=== PATIENT | female | born 1975 | race African-American/Black ===

== ENCOUNTER 2016-12-18 18:10 | Emergency (ER) | payer OTHER ==
[~2016-12-18] VITALS: Ht 162.6 cm; Wt 96.0 kg
[2016-12-18 18:18] VITALS: BP 107/75
== END 2016-12-18 20:30 | disposition left against medical advice (07) ==
LOC: ER 18:18
DX: O46.91 Antepartum hemorrhage, unspecified, first trimester (principal); Z3A.01 Less than 8 weeks gestation of pregnancy; Z53.21 Procedure and treatment not carried out due to patient leaving prior to being seen by health care provider